=== PATIENT | female | born 1970 | race American Indian/Alaskan Native ===

== ENCOUNTER 2016-05-24 13:02 | Outpatient (CLI) | payer BC ==
--- NOTE | 2016-05-24 14:17 | Mammography Report ---
Bilateral digital diagnostic mammogram with CAD. History: The patient had a diagnostic mammogram and June of 2015, but did not return for the recommended 6 month followup of the left breast; therefore this was performed as a diagnostic study. Findings: There is intermediate density of the fibroglandular tissue. The parenchymal asymmetry in the upper-outer left breast described on the previous study has essentially resolved with only minimal increased density in that region. There is no evidence of mass or architectural distortion. No suspicious calcifications are seen. Impression: No suspicious findings. BI-RADS code: 2. Recommendation: Annual screening.
== END 2016-05-24 13:03 | disposition home or self-care (01) ==
LOC: SPVWC 13:02
PROVIDERS: ATTEND Internal Medicine
DX: R92.8 Other abnormal and inconclusive findings on diagnostic imaging of breast (principal)
CPT/HCPCS: 77066; G0204